=== PATIENT | female | born 1985 | race Caucasian/White ===

== ENCOUNTER → 2017-08-06 | Outpatient (CLI) | payer OTHER ==
--- NOTE | 2017-08-06 19:26 | RADIOLOGY REPORT (SQ) ---
EXAM DESCRIPTION: U/S NON-OB PELVIS W/O DOP COMPLETED DATE/TIME: 08/06/2017 6:03 pm REASON FOR STUDY: O03.9 COMPLETE OR UNSP SPONTANEOUS WITHOUT COMPLICATION O03.9 COMPLETE O R UNSP SPONTANEOUS WITHOUT COMPLICA COMPARISON: None. TECHNIQUE: Dynamic and static grayscale images acquired of the pelvis via transabdominal approach an d recorded on PACS. Additional selected color Doppler and spectral images recorded. LIMITATIONS: None. FINDINGS: UTERUS: Contour normal. No mass. ENDOMETRIAL STRIPE: Heterogenous irregular appearance. Areas of bleeding in the endometrial cavity, best visualized with real-time imaging on cine clips. No retained products identified. CERVIX: No nabothian cysts. RIGHT OVARY AND DOPPLER: Ovary not visualized. LEFT OVARY AND DOPPLER: Ovary not visualized. FREE FLUID: None noted. OTHER: No other significant finding. MEASUREMENTS: UTERUS: 5 x 5 x 10.6 cm. ENDOMETRIAL STRIPE: Poorly defined. RIGHT OVARY: Not visualized. LEFT OVARY: Not visualized. IMPRESSION: HETEROGENOUS IRREGULAR ENDOMETRIUM WITH AREAS OF BLEEDING VISUALIZED. NO RETAINED PRODU CTS. TECHNICAL DOCUMENTATION: JOB ID: [id number] [employer]- All Rights Reserved Rev-07/12 Reading location - IP/workstation name: [email or web address]
== END ==
LOC: RAD 18:50
PROVIDERS: ATTEND Physician Assistant
DX: O03.9 Complete or unspecified spontaneous abortion without complication (principal)
CPT/HCPCS: 76856